=== PATIENT | male | born 1985 | race African-American/Black ===

== ENCOUNTER 2017-03-01 13:33 | Emergency (ER) | payer OTHER, MEDICAID ==
[~2017-03-01] VITALS: Ht 162.6 cm; Wt 72.1 kg
[2017-03-01 13:50] VITALS: BP 134/75
--- NOTE | 2017-03-01 15:40 | NUR ---
PATIENT LEFT WITHOUT BEING SEEN BY DR. REESE. NO FURTHER CARE PROVIDED FOR PATIENT.
[2017-03-02] MEDS ORDERED: [UNRECOGNIZED DRUG - CODE] PO (10:27)
[2017-03-02] MEDS ORDERED: CITA10TA11 PO (10:27)
[2017-03-02] MEDS ORDERED: RISP4TAB3 PO (10:27)
== END 2017-03-01 15:40 | disposition left against medical advice (07) ==
LOC: MED 13:33
DX: Z76.0 Encounter for issue of repeat prescription (principal); Z53.21 Procedure and treatment not carried out due to patient leaving prior to being seen by health care provider